=== PATIENT | female | born 1935 | race Caucasian/White ===

== ENCOUNTER → 2017-10-30 | Day surgery (SDC) | payer MEDICARE ==
[~2017-10-30] MED LIST: ACETAMINOPHEN 325 MG TAB ONE; ESTR0.053 TD; GEMF600 PO; LIDOCAINE 1%/EPINEPHrine 1:100,000 SOLN 30 ML VIAL ONE; PROPOFOL 500 MG/50 ML BTL IV ONE
--- NOTE | 2017-10-30 11:32 | TN ---
cc: HYACINTH VALDEZ M.D. DATE OF SURGERY: 10/30/2017 PREOPERATIVE DIAGNOSIS Left temporal headaches, elevated CRP. POSTOPERATIVE DIAGNOSIS Left temporal headaches, elevated CRP. PROCEDURE Left temporal artery biopsy. SURGEON Dr. Hyacinth Valdez. ANESTHESIA Local 1% lidocaine with epinephrine plus TIVA. INDICATIONS This is a very pleasant 82-year-old woman who was sent to me in consultation by Dr. Paco Flannery for headache on the left side of the head. She had a normal ESR but a slightly elevated CRP. Request is made for temporal artery biopsy. INTRAOPERATIVE FINDINGS Really tiny noninflamed temporal artery removed and sent to pathology. ESTIMATED BLOOD LOSS Less than 2 mL. DESCRIPTION OF PROCEDURE IN DETAIL The patient was identified as Conchis Salinas, taken to the operating room and placed in supine position. Following IV sedation by Anesthesia the left temporal area is prepped and draped in the usual sterile fashion with Betadine. A timeout procedure was performed. Following completion of the timeout procedure to everyone's satisfaction within the room, the proposed incision over a palpable temporal arterial pulse was made with a marking pen. It was infiltrated with local anesthetic. The incision was carried out with a scalpel. Hemostasis was controlled with electrocautery. The temporal fascia was opened with the scissors and an underlying tiny arterial branch was identified. Adjacent venous structures were identified and were obviously venous. Temporal artery had proximal, distal and a side branch. These were all cross-clamped with mosquito hemostats and the intervening segment excised and passed off the field for pathologic evaluation. The arterial division sites were ligated with 4-0 silk ties. The wound was irrigated with remaining local anesthetic. No additional arterial structure was evident within the wound. The wound was closed with interrupted inverted 4-0 Monocryl subcuticular sutures. Dressings were applied with Mastisol and half-inch brown Steri-Strips. The patient tolerated the procedure without apparent complication. Sponge, needle and instrument counts were correct at the end of the case. MD LALY Grace/ROS /11:10 AM /11:19 AM
== END | disposition home or self-care (01) ==
LOC: ESDC 08:52
PROVIDERS: ATTEND Surgery Trauma Surgery
DX: R51 Headache (principal); R79.82 Elevated C-reactive protein (CRP)
CPT/HCPCS: 00352; 37609; 88305; J3010; 88304

== ENCOUNTER 2018-03-19 13:00 | Inpatient (IN) | payer MEDICARE ==
[~2018-03-19] VITALS: Ht 162.6 cm; Wt 65.0 kg
[~2018-03-19 13:00] MED LIST changes: -ACETAMINOPHEN 325 MG TAB ONE; -LIDOCAINE 1%/EPINEPHrine 1:100,000 SOLN 30 ML VIAL ONE; -PROPOFOL 500 MG/50 ML BTL IV ONE
[2018-03-19 13:06] VITALS: BP 167/109; PULSE 94; RESP 17; TEMP 97.4; O2SAT 98
[2018-03-19] MEDS ORDERED: MORPHINE SULFATE 2 MG/ML SYRINGE IV PUSH ONE (13:30)
[2018-03-19] MEDS ORDERED: PRED5TAB PO (13:37)
[2018-03-19] MEDS ORDERED: GEMF600 PO (13:37)
[2018-03-19] MEDS ORDERED: ESTR0.5T PO (13:37)
--- NOTE | 2018-03-19 13:44 | PD ---
HPI Chief Complaint: Musculoskeletal Complaint Time Seen by Provider: 13:12 Travel History International Travel<30 days: No Contact w/Intl Traveler<30days: No Traveled to known affect area: No History of Present Illness HPI 82-year-old female that presents to the ED for evaluation of injury to her right shoulder and possible needing surgery. Per patient she had a fall yesterday in [place]. Per patient she was in [facility] and evaluated for a mechanical fall. Per patient she tripped over a curb. She landed on her right shoulder. She suffered a laceration as well as dislocation of her left fifth digit. This was fixed by the physician in the ER which she was seen. She was told that she had a dislocated fracture of her right proximal humerus and that she might require surgery to get it fixed as the physician at the time did not feel comfortable putting her back in place secondary to the fracture. She apparently was not to be sent to [place] but the patient herself decided to come to [facility] where she is from instead of going to [facility]. She currently states that she has 4 out of 10 pain on the right shoulder. She has a sling and swath in place. She states the most of the pain is actually on her left index finger. Per patient the pain in the finger is 10 out of 10. She does have a splint in place. She states that she has multiple abrasions including to her right elbow and hand and feet. Per patient she was given antibiotics and pain medication and did not took anything today because she was concerned she might need surgery today. She denies hitting her head or losing consciousness patient resting blood thinners. She denies having an orthopedic surgeon. No other medical issues. [facility] Past Medical History Arthritis: Yes Hypertension: Yes Tetanus Vaccination: < 5 Years Past Surgical History Appendectomy: Yes Hysterectomy: Yes Tonsillectomy: Yes Social History Alcohol Use: No Tobacco Use: No Substance Use: No Allergies-Medications (Allergen,Severity, Reaction): Coded Allergies: Sulfa (Sulfonamide Antibiotics) (Verified Allergy, Unknown, 03/19/18) codeine (Verified Allergy, Unknown, 03/19/18) erythromycin base (Verified Allergy, Unknown, 03/19/18) iodine (Verified Allergy, Unknown, 03/19/18) iohexol (Unverified Allergy, Unknown, itchy eyes, ears, scratch throat, ) Reported Meds & Prescriptions Reported Meds & Active Scripts Active Reported Prednisone 5 Mg Tab 5 Mg PO DAILY Lopid (Gemfibrozil) 600 Mg Tab 600 Mg PO BIDAC Take 30 minutes prior to breakfast and dinner Estradiol 0.5 Mg Tab 0.5 Mg PO WEEKLY Lopid (Gemfibrozil) 600 Mg Tab 600 Mg PO DAILY Estradiol 0.05 Mg Dis 1 Patch TD Q7D Review of Systems Except as stated in HPI: all other systems reviewed are Neg Physical Exam Narrative GENERAL: SKIN: Warm and dry. Multiple healing abrasions to the left hand, right hand and the right elbow. Patient has a superficial 2 cm laceration that appears to have been sutured with about 6 sutures noted on the left index finger on the ventral aspect of it. HEAD: Atraumatic. Normocephalic. EYES: Pupils equal and round. No scleral icterus. No injection or drainage. ENT: No nasal bleeding or discharge. Mucous membranes pink and moist. Tongue is midline. No uvula deviation. NECK: Trachea midline. No JVD. CARDIOVASCULAR: Regular rate and rhythm. RESPIRATORY: No accessory muscle use. Clear to auscultation. Breath sounds equal bilaterally. GASTROINTESTINAL: Abdomen soft, non-tender, nondistended. Hepatic and splenic margins not palpable. MUSCULOSKELETAL: Extremities without clubbing, cyanosis, or edema. No obvious deformities. Full range of motion of the upper and lower extremities bilaterally with exception of the right shoulder were patient has a sling and swathe has a lot of bruising and swelling noted on the shoulder itself. 2+ pulses bilaterally. Patient cannot move the left index finger secondary to having a splint as well as a lot of pain with it. She does have bruising and swelling noted. Patient does have some bruising noted in her legs but able to move them fully. No obvious cervical, thoracic, lumbar spine tenderness to palpation. NEUROLOGICAL: Awake and alert. No obvious cranial nerve deficits. Motor grossly within normal limits. Five out of 5 muscle strength in the arms and legs. Normal speech. PSYCHIATRIC: Appropriate mood and affect; insight and judgment normal. Data Data Last Documented VS Vital Signs Date Time Temp Pulse Resp B/P (MAP) Pulse Ox O2 Delivery O2 Flow Rate FiO2 03/19/18 13:06 97.4 94 17 167/109 (128) 98 Orders Orders Iv Access Insert/Monitor (03/19/18 13:23) Shoulder, Limited(2vws) (03/19/18 ) Complete Blood Count With Diff (03/19/18 13:29) Comprehensive Metabolic Panel (03/19/18 13:29) Prothrombin Time / Inr (Pt) (03/19/18 13:29) Act Partial Throm Time (Ptt) (03/19/18 13:29) Magnesium (Mg) (03/19/18 13:29) Morphine Inj (Morphine Inj) (03/19/18 13:30) Wound Care (03/19/18 13:29) Ondansetron Inj (Zofran Inj) (03/19/18 14:30) Propofol 200 Mg/20 Ml Inj (Diprivan 200 (03/19/18 14:45) Ct Shoulder W/O Contrast (03/19/18 ) Admit Order (Ed Use Only) (03/19/18 15:19) Admit To Inpatient (03/19/18 ) Code Status (03/19/18 15:20) Vital Signs (Adult) Q4H (03/19/18 15:20) Activity Bed Rest (03/19/18 15:20) Diet Heart Healthy (03/19/18 Dinner) Sodium Chloride 0.9% Flush (Ns Flush) (03/19/18 15:30) Sodium Chloride 0.9% Flush (Ns Flush) (03/19/18 21:00) Acetaminophen (Tylenol) (03/19/18 15:30) Ondansetron Inj (Zofran Inj) (03/19/18 15:30) Temazepam (Restoril) (03/19/18 15:30) Comprehensive Metabolic Panel (03/20/18 06:00) Complete Blood Count With Diff (03/20/18 06:00) Pt Request For Service (03/19/18 15:20) Acetaminophen (Tylenol) (03/19/18 15:30) Acetamin-Hydrocod 325-5 Mg ([place] 5-325 (03/19/18 15:30) Acetamin-Hydrocod 325-7.5 Mg ([place] 7.5 (03/19/18 15:30) Naloxone Inj (Narcan Inj) (03/19/18 15:30) Magnesium Hydroxide Liq (Milk Of Magnesi (03/19/18 15:30) Inpatient Certification (03/19/18 ) Albuterol-Ipratropium Neb (Duoneb Neb) (03/19/18 15:30) Clonidine (Catapres) (03/19/18 15:30) Enalaprilat Inj (Vasotec Inj) (03/19/18 15:30) Labs Laboratory Tests Test 03/19/18 14:00 White Blood Count 14.8 TH/MM3 Red Blood Count 4.25 MIL/MM3 Hemoglobin 12.7 GM/DL Hematocrit 38.0 % Mean Corpuscular Volume 89.3 FL Mean Corpuscular Hemoglobin 30.0 PG Mean Corpuscular Hemoglobin Concent 33.6 % Red Cell Distribution Width 12.6 % Platelet Count 296 TH/MM3 Mean Platelet Volume 8.0 FL Neutrophils (%) (Auto) 81.8 % Lymphocytes (%) (Auto) 8.3 % Monocytes (%) (Auto) 9.0 % Eosinophils (%) (Auto) 0.2 % Basophils (%) (Auto) 0.7 % Neutrophils # (Auto) 12.1 TH/MM3 Lymphocytes # (Auto) 1.2 TH/MM3 Monocytes # (Auto) 1.3 TH/MM3 Eosinophils # (Auto) 0.0 TH/MM3 Basophils # (Auto) 0.1 TH/MM3 CBC Comment DIFF FINAL Differential Comment Prothrombin Time 10.0 SEC Prothromb Time International Ratio 1.0 RATIO Activated Partial Thromboplast Time 24.8 SEC Blood Urea Nitrogen 16 MG/DL Creatinine 0.85 MG/DL Random Glucose 115 MG/DL Total Protein 7.0 GM/DL Albumin 3.8 GM/DL Calcium Level 9.3 MG/DL Magnesium Level 2.2 MG/DL Alkaline Phosphatase 70 U/L Aspartate Amino Transf (AST/SGOT) 23 U/L Alanine Aminotransferase (ALT/SGPT) 22 U/L Total Bilirubin 0.4 MG/DL Sodium Level 137 MEQ/L Potassium Level 4.2 MEQ/L Chloride Level 102 MEQ/L Carbon Dioxide Level 26.0 MEQ/L Anion Gap 9 MEQ/L Estimat Glomerular Filtration Rate 64 ML/MIN MDM Medical Decision Making Medical Screen Exam Complete: Yes Emergency Medical Condition: Yes Medical Record Reviewed: Yes Interpretation(s) CBC & BMP Diagram 03/19/18 14:00 Total Protein 7.0, Albumin 3.8, Calcium Level 9.3, Magnesium Level 2.2, Alkaline Phosphatase 70, Aspartate Amino Transf (AST/SGOT) 23, Alanine Aminotransferase (ALT/SGPT) 22, Total Bilirubin 0.4 Last Impressions Shoulder X-Ray 03/19/18 0000 Signed Impressions: Service Date/Time: Monday, March 19, 2018 13:39 - CONCLUSION: Fracture dislocation humeral head as above. Louis Lowe MD FACR Differential Diagnosis Fracture versus fracture dislocation versus laceration versus wound care versus normal exam Narrative Course 82-year-old female that presents to the ED for evaluation of right shoulder pain and possible need for surgery. Patient was properly examined and was found to have signs and symptoms consistent with what appears to be fracture dislocation. Patient came here with imaging CDs as well as reports from the hospital where she was at. I did review the CD imaging and patient does appear to have a fracture dislocation of the right humeral head. Patient opted to come here to get evaluated instead of going to [place] secondary to being from here. At this time a recommend x-ray to see if the fracture still dislocated. Patient was given IV pain medications. Meds were ordered. Labs and imaging show what appears to be fracture dislocation of the right shoulder. Case was discussed with my attending who recommends we speak with ortho. I spoke with jerson and MAGAN who works with Dr. Ornelas and recommended that we try to do the reduction. Before the reduction was done my attending got a call back from Dr. Ornelas's PA who wanted us to admit the patient and do a CT and n.p.o. after midnight for surgery tomorrow. This was relayed to the patient who agree with plan. My attending evaluated the patient herself and agrees with plan. Patient will be admitted to Dr. Zuniga who agreed to admission. Diagnosis Primary Impression: Fracture of humeral head, right, closed Qualified Codes: S42.291A - Other displaced fracture of upper end of right humerus, initial encounter for closed fracture Additional Impressions: Dislocation, shoulder closed Qualified Codes: S43.004A - Unspecified dislocation of right shoulder joint, initial encounter Multiple abrasions Finger dislocation Qualified Codes: S63.259A - Unspecified dislocation of unspecified finger, initial encounter Admitting Information Admitting Physician Requests: Admit Bertram Lee March 19, 2018 13:44
--- NOTE | 2018-03-19 13:52 | RADRPT ---
EXAM DATE/TIME: 03/19/2018 13:39 [facility] COMPARISON: No previous studies available for comparison. INDICATIONS : Right shoulder pain after fall lastnight. MEDICAL HISTORY : None. SURGICAL HISTORY : None. ENCOUNTER: Initial ACUITY: 1 day PAIN SCORE: 6/10 LOCATION: Right shoulder FINDINGS: Anterior inferior dislocation with 2 part fracture of the humeral head with greater tuberosity free f ragment. The glenoid acromion and clavicle intact. CONCLUSION: Fracture dislocation humeral head as above. Louis Lowe MD FACR on March 19, 2018 at 13:49 Board Certified Radiologist. This report was verified electronically.
[2018-03-19] MEDS: GEMFIBROZIL 600 MG TAB PO SCH ×2 (14:00→23:52)
[2018-03-19 14:11] LABS: AUTOMATED NEUTROPHIL # 12.1 TH/MM3 (1.8-7.7); BASOPHIL # 0.1 TH/MM3 (0-0.2); BASOPHIL % 0.7 % (0.0-2.0); EOSINOPHIL % 0.2 % (0.0-4.0); HEMOGLOBIN 12.7 GM/DL (11.6-15.3); LYMPH % 8.3 % (9.0-44.0); LYMPHOCYTE # 1.2 TH/MM3 (1.0-4.8); MEAN CELL VOLUME 89.3 FL (80.0-100.0); MEAN CORPUSCULAR HGB CONC 33.6 % (32.0-36.0); MONOCYTE # 1.3 TH/MM3 (0-0.9); NEUT % 81.8 % (16.0-70.0); PLATELET COUNT 296 TH/MM3 (150-450); RED BLOOD COUNT 4.25 MIL/MM3 (4.00-5.30); RED CELL DISTRIBUTION WIDTH 12.6 % (11.6-17.2); WHITE BLOOD COUNT 14.8 TH/MM3 (4.0-11.0)
[2018-03-19 14:23] LABS: ALBUMIN 3.8 GM/DL (3.4-5.0); ALT (GPT) 22 U/L (10-53); AST (GOT) 23 U/L (15-37); BLOOD UREA NITROGEN 16 MG/DL (7-18); CALCIUM 9.3 MG/DL (8.5-10.1); CHLORIDE 102 MEQ/L (98-107); CREATININE 0.85 MG/DL (0.50-1.00); GLOMERULAR FILTRATION RATE 64 ML/MIN (>89); GLUCOSE,RANDOM 115 MG/DL (74-106); MAGNESIUM 2.2 MG/DL (1.5-2.5); SODIUM (NA) 137 MEQ/L (136-145)
[2018-03-19 14:25] LABS: ALKALINE PHOSPHATASE 70 U/L (45-117); TOTAL BILIRUBIN ADULT 0.4 MG/DL (0.2-1.0)
[2018-03-19] MEDS ORDERED: ONDANSETRON HCL 4 MG/2 ML VIAL IV PUSH ONE (14:30)
[2018-03-19] MEDS ORDERED: PROPOFOL 200 MG/20 ML AMP IV ONE (14:45)
[2018-03-19] MEDS ORDERED: RESP: ALBUTEROL 2.5 MG/IPRATROPIUM 0.5 MG NEB (PRN) NEB (15:30)
[2018-03-19] MEDS ORDERED: NALOXONE HCL 0.4 MG/ML AMP IV PUSH PRN (15:30)
[2018-03-19] MEDS ORDERED: ONDANSETRON HCL 4 MG/2 ML VIAL IVP PRN (15:30)
[2018-03-19] MEDS ORDERED: SODIUM CHLORIDE 0.9% FLUSH 10 ML FLUSH IV FLUSH PRN (15:30)
[2018-03-19] MEDS ORDERED: ACETAMINOPHEN 325 MG TAB PO PRN ×2 (15:30)
[2018-03-19] MEDS ORDERED: MAGNESIUM HYDROXIDE SUSP 30 ML CUP PO PRN (15:30)
[2018-03-19] MEDS ORDERED: ACETAMINOPHEN/HYDROcodone 325 MG/7.5 MG TAB PO PRN (15:30)
--- NOTE | 2018-03-19 15:43 | HHI.HP ---
HPI Service [facility] Primary Care Physician Dawson Troy MD Admission Diagnosis right humeral head fracture with dislocation, fall Diagnoses: (1) Fracture of humeral head, right, closed (2) Leucocytosis (3) Hypertension (4) Finger dislocation Chief Complaint: Right upper extremity pain Travel History International Travel<30 Days: No Contact w/Intl Traveler <30 Da: No Traveled to Known Affected Are: No History of Present Illness 82-year-old female for medical history of hypertension, osteoarthritis who presented to the ED via private vehicle for evaluation of right upper extremity/ shoulder pain as well as left fifth finger pain status post mechanical fall, which have been last night around 8 PM in [place]. Patient states, she tripped over, in the parking lot and landed on the right shoulder, however in the process injuring her left fifth finger. She denied any head trauma or loss of consciousness. She suffered multiple laceration to bilateral lower extremities. Immediately reported over 10 in intensity severe pain. Patient was initially taken to a local emergency department however decided to drive herself in [place] for evaluation by orthopedic surgery. Currently she denies any chest pain, shortness of breath. She has no GI bleed. 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 Hypertension Past Surgical History Appendectomy: Yes Hysterectomy: Yes Tonsillectomy: Yes Reported Medications Prednisone 5 Mg Tab 5 Mg PO DAILY Lopid (Gemfibrozil) 600 Mg Tab 600 Mg PO BIDAC Take 30 minutes prior to breakfast and dinner Estradiol 0.5 Mg Tab 0.5 Mg PO WEEKLY Lopid (Gemfibrozil) 600 Mg Tab 600 Mg PO DAILY Estradiol 0.05 Mg Dis 1 Patch TD Q7D Allergies: Coded Allergies: Sulfa (Sulfonamide Antibiotics) (Verified Allergy, Unknown, 03/19/18) erythromycin base (Verified Allergy, Unknown, 03/19/18) iodine (Verified Allergy, Unknown, 03/19/18) iohexol (Unverified Allergy, Unknown, itchy eyes, ears, scratch throat, ) codeine (Verified Adverse Reaction, Mild, Nausea/Vomiting, 03/19/18) Family History Due to patient's advanced age, family history not relevant for this case Social History Alcohol Use: No Tobacco Use: No Substance Use: No Physical Exam Vital Signs Vital Signs Date Time Temp Pulse Resp B/P (MAP) Pulse Ox O2 Delivery O2 Flow Rate FiO2 03/19/18 13:06 97.4 94 17 167/109 (128) 98 Physical Exam GENERAL: This is a well-nourished, well-developed patient, in no apparent distress. SKIN: + ecchymoses BLE. Cool and dry. HEAD: Atraumatic. Normocephalic. No temporal or scalp tenderness. EYES: Pupils equal round and reactive. Extraocular motions intact. No scleral icterus. No injection or drainage. ENT: Nose without bleeding, purulent drainage or septal hematoma. Throat without erythema, tonsillar hypertrophy or exudate. Uvula midline. Airway patent. NECK: Trachea midline. No JVD or lymphadenopathy. Supple, nontender, no meningeal signs. CARDIOVASCULAR: Regular rate and rhythm without murmurs, gallops, or rubs. RESPIRATORY: Clear to auscultation. Breath sounds equal bilaterally. No wheezes , rales, or rhonchi. GASTROINTESTINAL: Abdomen soft, non-tender, nondistended. No hepato-splenomegaly , or palpable masses. No guarding. MUSCULOSKELETAL: Extremities without clubbing, cyanosis, or edema. No joint tenderness, effusion, or edema noted. No calf tenderness. Negative Homans sign bilaterally.RUE in sling; left fifth finger in splint. NEUROLOGICAL: Awake and alert. Cranial nerves II through XII intact. Motor and sensory grossly within normal limits. Five out of 5 muscle strength in all muscle groups. Normal speech. Laboratory Laboratory Tests Test 03/19/18 14:00 White Blood Count 14.8 Red Blood Count 4.25 Hemoglobin 12.7 Hematocrit 38.0 Mean Corpuscular Volume 89.3 Mean Corpuscular Hemoglobin 30.0 Mean Corpuscular Hemoglobin Concent 33.6 Red Cell Distribution Width 12.6 Platelet Count 296 Mean Platelet Volume 8.0 Neutrophils (%) (Auto) 81.8 Lymphocytes (%) (Auto) 8.3 Monocytes (%) (Auto) 9.0 Eosinophils (%) (Auto) 0.2 Basophils (%) (Auto) 0.7 Neutrophils # (Auto) 12.1 Lymphocytes # (Auto) 1.2 Monocytes # (Auto) 1.3 Eosinophils # (Auto) 0.0 Basophils # (Auto) 0.1 CBC Comment DIFF FINAL Differential Comment Prothrombin Time 10.0 Prothromb Time International Ratio 1.0 Activated Partial Thromboplast Time 24.8 Blood Urea Nitrogen 16 Creatinine 0.85 Random Glucose 115 Total Protein 7.0 Albumin 3.8 Calcium Level 9.3 Magnesium Level 2.2 Alkaline Phosphatase 70 Aspartate Amino Transf (AST/SGOT) 23 Alanine Aminotransferase (ALT/SGPT) 22 Total Bilirubin 0.4 Sodium Level 137 Potassium Level 4.2 Chloride Level 102 Carbon Dioxide Level 26.0 Anion Gap 9 Estimat Glomerular Filtration Rate 64 Result Diagram: 03/19/18 1400 03/19/18 1400 Septic Shock Reassessment Septic shock perfusion: reassessment completed Caprini VTE Risk Assessment Caprini VTE Risk Assessment: Mod/High Risk (score >= 2) Caprini Risk Assessment Model Point Value = 1 Point Value = 2 Point Value = 3 Point Value = 5 Age 41-60 Minor surgery BMI > 25 kg/m2 Swollen legs Varicose veins or History of unexplained or recurrent spontaneous Oral contraceptives or hormone replacement Sepsis (< 1 month) Serious lung disease, including pneumonia (< 1 month) Abnormal pulmonary function Acute myocardial infarction Congestive heart failure (< 1 month) History of inflammatory bowel disease Medical patient at bed rest Age 61-74 Arthroscopic surgery Major open surgery (> 45 min) Laparoscopic surgery (> 45 min) Malignancy Confined to bed (> 72 hours) Immobilizing plaster cast Central venous access Age >= 75 History of VTE Family history of VTE Factor V Leiden Prothrombin [id number] Lupus anticoagulant Anticardiolipin antibodies Elevated serum homocysteine Heparin-induced thrombocytopenia Other congenital or acquired thrombophilia Stroke (< 1 month) Elective arthroplasty Hip, pelvis, or leg fracture Acute spinal cord injury (< 1 month) Prophylaxis Regimen Total Risk Factor Score Risk Level Prophylaxis Regimen 0-1 Low Early ambulation 2 Moderate Order ONE of the following: *Sequential Compression Device (SCD) *Heparin 5000 units SQ BID 3-4 Higher Order ONE of the following medications: *Heparin 5000 units SQ TID *Enoxaparin/Lovenox 40 mg SQ daily (WT < 150 kg, CrCl > 30 mL/min) *Enoxaparin/Lovenox 30 mg SQ daily (WT < 150 kg, CrCl > 10-29 mL/min) *Enoxaparin/Lovenox 30 mg SQ BID (WT < 150 kg, CrCl > 30 mL/min) AND/OR *Sequential Compression Device (SCD) 5 or more Highest Order ONE of the following medications: *Heparin 5000 units SQ TID (Preferred with Epidurals) *Enoxaparin/Lovenox 40 mg SQ daily (WT < 150 kg, CrCl > 30 mL/min) *Enoxaparin/Lovenox 30 mg SQ daily (WT < 150 kg, CrCl > 10-29 mL/min) *Enoxaparin/Lovenox 30 mg SQ BID (WT < 150 kg, CrCl > 30 mL/min) AND *Sequential Compression Device (SCD) Assessment and Plan Problem List: (1) Fracture of humeral head, right, closed ICD Code: S42.291A - Other displaced fracture of upper end of right humerus, initial encounter for closed fracture Status: Acute (2) Finger dislocation ICD Code: S63.259A - Unspecified dislocation of unspecified finger, initial encounter Status: Acute Assessment and Plan 82-year-old female with Fracture of humeral heads, right, closed Status post mechanical fall March 17, 2018 Outside radiographic studies noted and reviewed Check CT right upper extremity Orthopedic surgery consulted for repair in a.m. Analgesic/pain medication as needed N.p.o. after midnight Dislocation of left fifth digits Consul Hand surgery as needed History of hypertension Labile BP likely secondary to poorly controlled blood pressure versus inadequate pain control Resume outpatient medication Clonidine as needed Patient with history of giant cell arthritis Currently on steroid, resume Leukocytosis Likely secondary to steroid versus stress reactive Monitor DVT prophylaxis: Bilateral SCDs Code Status Full code Discussed Condition With Patient, granddaughter, ED PA Physician Certification Order for Inpatient Services The services are ordered in accordance with Medicare regulations or non- Medicare payer requirements, as applicable. In the case of services not specified as inpatient-only, they are appropriately provided as inpatient services in accordance with the 2-midnight benchmark. days is the estimated time the patient will need to remain in the hospital, assuming treatment plan goals are met and no additional complications. Problem Qualifiers (1) Fracture of humeral head, right, closed: Qualified Codes: S42.291A - Other displaced fracture of upper end of right humerus, initial encounter for closed fracture (2) Finger dislocation: Qualified Codes: S63.259A - Unspecified dislocation of unspecified finger, initial encounter Dante Zuniga MD March 19, 2018 15:43
--- NOTE | 2018-03-19 16:12 | RADRPT ---
EXAM DATE/TIME: 03/19/2018 15:50 This report includes an Addendum and supersedes previous reports for this exam. [facility] COMPARISON: No previous studies available for comparison. INDICATIONS : Right shoulder fracture post fall. RADIATION DOSE: 21.70 CTDIvol (mGy) MEDICAL HISTORY : Hypertension. SURGICAL HISTORY : None. ENCOUNTER: Initial ACUITY: 1 day PAIN SCALE: 10/10 LOCATION: Right shoulder TECHNIQUE: Volumetric scanning of the shoulder was performed. Using automated exposure control and adjustment o f the mA and/or kV according to patient size, radiation dose was kept as low as reasonably achievable to obtain optimal diagnostic quality images. DICOM format image data is available electronically f or review and comparison. FINDINGS: Again seen is the fracture dislocation of the humeral head. The large fragment of the humeral head i s trapped below the glenoid. The liver is small corner fracture inferior glenoid. The greater tuberosity is 83 fragment. The acromium and scapula are intact. 3-D reconstructions are pending. CONCLUSION: Anterior fracture dislocation of the right humerus. Louis Lowe MD FACR on March 19, 2018 at 16:08 Board Certified Radiologist. This report was verified electronically. ADDENDUM: 3-D reconstructions confirm comminuted fracture with anterior dislocation humeral head. Louis Lowe MD FACR on March 19, 2018 at 16:25 Board Certified Radiologist. This report was verified electronically.
[2018-03-19 16:13] VITALS: BP 184/78; PULSE 81; RESP 18; O2SAT 98
[2018-03-19 17:10] VITALS: BP 165/78
[2018-03-19] MEDS: cloNIDine HCL 0.1 MG TAB PO PRN (17:12)
[2018-03-19 20:00] VITALS: BP 167/74; PULSE 89; RESP 19; TEMP 97.9; O2SAT 98
--- NOTE | 2018-03-19 20:10 | RADRPT ---
EXAM DATE/TIME: 03/19/2018 19:46 [facility] COMPARISON: No previous studies available for comparison. INDICATIONS : Pain. MEDICAL HISTORY : None. SURGICAL HISTORY : None. ENCOUNTER: Initial ACUITY: 1 day PAIN SCORE: 4/10 LOCATION: Left hand, fifth digit. FINDINGS: There is soft tissue swelling of the fifth finger and a small avulsion fracture is noted adjacent to the proximal interphalangeal joint. True lateral view not available. CONCLUSION: 1. Small avulsion fracture near proximal interphalangeal joint of fifth finger. Overlying soft tissue swelling. No dislocation. Osteoarthritis left hand. Santos Herman MD on March 19, 2018 at 20:07 Board Certified Radiologist. This report was verified electronically.
[2018-03-19] MEDS: SODIUM CHLORIDE 0.9% FLUSH 10 ML FLUSH IV FLUSH SCH (21:00)
[2018-03-19] MEDS ORDERED: TEMAZEPAM 15 MG CAP PO PRN (21:00)
--- NOTE | 2018-03-19 21:36 | RADRPT ---
EXAM DATE/TIME: 03/19/2018 20:23 [facility] COMPARISON: No previous studies available for comparison. INDICATIONS : Pain. Follow up post dislocation. MEDICAL HISTORY : None. SURGICAL HISTORY : None. ENCOUNTER: Initial ACUITY: 2 days PAIN SCORE: 2/10 LOCATION: Right hand, proximal first digit. FINDINGS: Examination of the first digit of the right hand demonstrates no evidence of fracture or dislocation. No radiopaque foreign bodies are seen. The soft tissues are intact. CONCLUSION: 1. Normal alignment. No acute fracture identified. Santos Herman MD on March 19, 2018 at 21:31 Board Certified Radiologist. This report was verified electronically.
[2018-03-19] MEDS ORDERED: LACTATED RINGER'S 1000 ML IV PRN (21:45)
[2018-03-19] MEDS ORDERED: METOPROLOL TARTRATE 25 MG TAB PO PRN (21:45)
[2018-03-19] MEDS ORDERED: SODIUM CHLORID 0.9% 500 ML IV PRN (21:45)
[2018-03-19] MEDS ORDERED: hydrALAZINE HCL 25 MG TAB PO PRN (22:15)
[2018-03-20] VITALS (9 sets, daily range): BP systolic 140–184; BP diastolic 64–88; PULSE 82–98; RESP 17–18; TEMP 97.2–98.2; O2SAT 92–98
--- NOTE | 2018-03-20 00:35 | MB ---
cc: Liliane Louise MD DATE: 03/19/2018 REASON FOR COMPLAINT: Status post left small finger PIP dislocation and reduction, and right thumb sprain. HISTORY OF PRESENT ILLNESS: Conchis Salinas is a pleasant 82-year-old female who lives in [place], who was in [place], [place] yesterday evening for a when she tripped and fell in a parking lot. She injured her right shoulder, right thumb and left small finger. The patient states she was seen at a hospital in [place]. She states she had an open dislocation of the left small finger PIP joint. I do not have the records, but per the patient, the wound was irrigated and sutured and reduced. The patient states she also had a dislocation of the right thumb, which was reduced without an open wound. The ER physician recommended surgery for the right shoulder, and the patient returned home for evaluation at [place] today. She denies prior significant injuries to bilateral upper extremities. She was seen by Dr. Urrutia in the past for an infection over the left middle finger. She has multiple abrasions over the upper and lower extremities. PAST SURGICAL HISTORY: Appendectomy, hysterectomy, tonsillectomy. PAST MEDICAL HISTORY: Hypertension. MEDICATIONS: 1. Prednisone. 2. Gemfibrozil. 3. Estradiol. ALLERGIES: SULFA, CODEINE, ERYTHROMYCIN, IODINE. SOCIAL HISTORY: The patient is retired. Denies tobacco, alcohol or drug use. She lives in [facility] with her . PHYSICAL EXAMINATION: The patient is alert and oriented. She presents in a sling on the right upper extremity. There is a dressing on the right thumb which was removed. There are no lacerations over the right thumb. The patient is able to flex and extend the thumb, and the thumb appears stable. Exam of the left hand shows an abrasion over the left palm. Sutures in place over the volar aspect of the left small finger. The patient is able to fire FDS and FDP. Sensation intact in the radial and ulnar side. Less than 2 second capillary refill. XRAYS: At this time, I do not have records from the outside hospital or their x-rays. Today xrays of the left small finger show an avulsion of the PIP joint with a reduced joint. No evidence of fracture or dislocation of the right thumb. ASSESSMENT AND PLAN: An 82-year-old female with apparent prior dislocation of the left small finger PIP joint, which was open and reduced at the outside hospital. Again, I do not have their x-rays at this time. The patient also states a reduction over the right thumb, but I do not have evidence of this today. Repeat x-rays show reduction of both joints. The patient was placed into an ulnar gutter splint on the left hand due to the right upper extremity surgery tomorrow. After this, she should be placed into a dorsal blocking splint by therapy to work on aggressive flexion of the finger. I will see her when she is discharged in 1 week in the office. Dr. Ornelas may manage the right upper extremity or I can continue to follow the thumb and hopefully obtain the x-rays from the outside hospital. At this time, no splint was placed on the right thumb. Nurses should change the abrasion dressings daily. MD HOSSEIN Xiao/DASIA , 11:31 PM , 12:34 AM [email or web address]
[2018-03-20] MEDS: ENALAPRILAT 2.5 MG/2 ML VIAL IV PUSH PRN (05:45)
[2018-03-20] MEDS ORDERED: MORPHINE SULFATE 4 MG/ML INJ IV ONE (06:00)
[2018-03-20 07:04] LABS: AUTOMATED NEUTROPHIL # 9.7 TH/MM3 (1.8-7.7); BASOPHIL # 0.1 TH/MM3 (0-0.2); BASOPHIL % 0.7 % (0.0-2.0); EOSINOPHIL # 0.1 TH/MM3 (0-0.4); EOSINOPHIL % 1.2 % (0.0-4.0); HEMATOCRIT 34.9 % (35.0-46.0); HEMOGLOBIN 11.7 GM/DL (11.6-15.3); LYMPH % 9.2 % (9.0-44.0); LYMPHOCYTE # 1.1 TH/MM3 (1.0-4.8); MEAN CELL VOLUME 89.5 FL (80.0-100.0); MEAN CORPUSCULAR HEMOGLOBIN 30.1 PG (27.0-34.0); MEAN CORPUSCULAR HGB CONC 33.6 % (32.0-36.0); MONO % 10.1 % (0.0-8.0); MONOCYTE # 1.2 TH/MM3 (0-0.9); NEUT % 78.8 % (16.0-70.0); PLATELET COUNT 261 TH/MM3 (150-450); RED CELL DISTRIBUTION WIDTH 12.5 % (11.6-17.2); WHITE BLOOD COUNT 12.3 TH/MM3 (4.0-11.0)
--- NOTE | 2018-03-20 07:15 | PD.ORT.PN ---
Subjective Subjective Remarks s/p fall in [place] approx 3 days ago left hand pain and right shoulder pain hand managing left hand Objective Vitals Vital Signs Date Time Temp Pulse Resp B/P (MAP) Pulse Ox O2 Delivery O2 Flow Rate FiO2 03/20/18 04:00 98.2 90 18 168/74 (105) 96 03/20/18 00:00 98.0 95 18 147/88 (107) 95 03/19/18 20:00 97.9 89 19 167/74 (105) 98 03/19/18 17:10 165/78 (107) 03/19/18 16:13 81 18 184/78 (113) 98 03/19/18 13:06 97.4 94 17 167/109 (128) 98 I/O 03/19/18 03/19/18 03/19/18 03/20/18 03/20/18 03/20/18 07:00 15:00 23:00 07:00 15:00 23:00 Intake Total 575 ml Balance 575 ml Intake Oral 575 ml # Voids 2 Result Diagram: 03/20/18 0651 03/19/18 1400 Other Results Laboratory Tests Test 03/19/18 14:00 Prothromb Time International Ratio 1.0 RATIO Prothrombin Time 10.0 SEC (9.8-11.6) Objective Remarks RUE: +sling/swathe. noticeable bruising of right arm. nvi distally Assessment & Plan Assessment and Plan 1) Right Proximal Humerus Fx with dislocation -npo -surgery today with Ornelas -sign consents Sameer Cannon/Radiology Practitioner Assistant PA March 20, 2018 07:15
[2018-03-20] MEDS ORDERED: CALCTAB19 PO (07:16)
[2018-03-20] MEDS ORDERED: VITA2000 PO (07:16)
[2018-03-20] MEDS ORDERED: VITA500012 PO (07:16)
[2018-03-20] MEDS ORDERED: HYDR-3583 PO (07:16)
[2018-03-20] MEDS ORDERED: ceFAZolin 2 GM PREMIX 50 ML ONE (07:29)
[2018-03-20] MEDS ORDERED: GENTAMICIN SULFATE 80 MG/2 ML VIAL ONE (07:29)
[2018-03-20] MEDS ORDERED: VANCOMYCIN HCL 1000 MG VIAL ONE (07:29)
[2018-03-20 07:36] LABS: ALBUMIN 3.2 GM/DL (3.4-5.0); ALT (GPT) 17 U/L (10-53); AST (GOT) 22 U/L (15-37); BICARBONATE 27.7 MEQ/L (21.0-32.0); BLOOD UREA NITROGEN 11 MG/DL (7-18); CALCIUM 8.8 MG/DL (8.5-10.1); CHLORIDE 104 MEQ/L (98-107); CREATININE 0.74 MG/DL (0.50-1.00); GLOMERULAR FILTRATION RATE 75 ML/MIN (>89); GLUCOSE,RANDOM 118 MG/DL (74-106); SODIUM (NA) 139 MEQ/L (136-145)
[2018-03-20 07:38] LABS: ALKALINE PHOSPHATASE 60 U/L (45-117); TOTAL BILIRUBIN ADULT 0.5 MG/DL (0.2-1.0); TOTAL PROTEIN 6.3 GM/DL (6.4-8.2)
[2018-03-20] MEDS ORDERED: HYDROCORTISONE SOD SUCCINATE 100 MG VIAL ONE (08:01)
[2018-03-20] MEDS: predniSONE 5 MG TAB PO SCH (08:40)
[2018-03-20] MEDS: SODIUM CHLORIDE 0.9% FLUSH 10 ML FLUSH IV FLUSH SCH ×2 (08:41→21:28)
--- NOTE | 2018-03-20 08:54 | MB ---
cc: Benton Ornelas MD DATE: 03/20/2018 REASON FOR CONSULTATION: Right proximal humerus fracture dislocation CONSULTING PHYSICIAN: Dr. Dante Zuniga. HISTORY OF PRESENT ILLNESS: Conchis is an 82-year-old female who has a history of hypertension and osteoarthritis. She was in [place] when she had a mechanical fall. She tripped in a parking lot and landed on her right arm. She had immediate right arm and hand pain. She was seen and evaluated in an emergency room in [place]. She reportedly had a finger dislocation as well as a right proximal humerus fracture dislocation. The patient was placed into a sling. She returned home via private vehicle. She presented to [facility] for definitive treatment of her hand and her right shoulder. Hand surgery has been consulted for treatment of her fingers. X-rays reveal a fracture-dislocation of the right proximal humerus. The shoulder is still dislocated. The patient is currently awake and alert on the orthopedic floor. She primarily complains of shoulder pain. The pain is worse with movement and is improved with rest. PAST MEDICAL HISTORY: ILLNESSES: Hypertension. PAST SURGICAL HISTORY: Appendectomy, hysterectomy, tonsillectomy. MEDICATIONS: Estradiol and prednisone. ALLERGIES: SULFA, CODEINE, ERYTHROMYCIN, IODINE. FAMILY HISTORY: Noncontributory. SOCIAL HISTORY: The patient denies alcohol, tobacco or drug use. REVIEW OF SYSTEMS: The patient denies headache, visual changes, neck pain, chest pain, shortness of breath, abdominal pain, nausea, vomiting, recent weight loss, fever, chills, numbness or tingling of the extremities. She complains of right shoulder pain. She also has some left hand pain. The pain is worse with movement. PHYSICAL EXAMINATION: GENERAL: The patient is a pleasant 82-year-old female. She is awake and alert. She appears well developed and well nourished. She is in no acute distress. VITAL SIGNS: Temperature 97.8, pulse 86, respirations 18, blood pressure 147/65, O2 saturation 98% on room air. HEENT: Head: The patient is normocephalic. Pupils are equal. NECK: Soft, nontender. The trachea is in the midline. ABDOMEN: Soft, nontender, nondistended. EXTREMITIES: Examination of the right arm reveals mild swelling and bruising of the right shoulder. She has pain with any shoulder motion. She has no pain with elbow motion. She has intact sensation in all fingers. She has good capillary refill in all fingers. Examination of the left arm reveals no pain with shoulder, elbow or wrist motion. She has intact sensation in all fingers. Radial pulse is palpable. Skin is intact. Examination of bilateral lower extremities reveals no pain with hip, knee or ankle motion. Skin is intact. Sensation is intact to both feet. X-RAYS: X-rays of the right shoulder were reviewed. X-rays reveal a fracture-dislocation of the right proximal humerus. LABORATORY DATA: White blood cell count is 12.3, hematocrit is 34.9, platelet count is 261. INR is 1.0. BUN is 11 and creatinine 0.74. IMPRESSION: 1. Hypertension. 2. Right shoulder fracture dislocation. 3. Left fifth finger proximal interphalangeal joint dislocation. PLAN: Treatment options were discussed with the patient and her family. At this point, I would recommend surgery for her right shoulder. I would recommend attempted open reduction, internal fixation of fracture. If the fracture is in too many pieces and not stable, then she may need a right shoulder hemiarthroplasty. The risks of surgery include bleeding, infection, injuries to arteries, nerves or blood vessels, nonunion, malunion, need for shoulder replacement, loss of motion, weakness or numbness of the arm as well as medical complications including blood clot, stroke, heart attack and . All questions were answered. I will plan on surgery today. All questions were answered. A mid-level provider in my office, nurse practitioner or PA, may see this patient on a follow-up basis and continue to implement the objective of this plan including: Starting or adjusting medications, injections of muscle, tendon, bursa or joints, cast application, orthotic or brace application, physical therapy, further radiographic studies including x-ray, MRI, CT, ultrasounds or bone scan, vascular studies, neurologic studies, or other specialist consultations, and proceeding with surgical management as appropriate. MD USHA Espino/GRAY , 08:29 AM , 08:53 AM
[2018-03-20] MEDS ORDERED: ACETAMINOPHEN 1000 MG/100 ML 100 ML IV ONE (09:02)
--- NOTE | 2018-03-20 09:42 | PD.OP ---
cc: Benton Mcgrath MD Operative Report Date of Surgery: March 20, 2018 Preoperative Diagnosis: Right proximal humerus fracture, right shoulder dislocation Postoperative Diagnosis: Procedure: Open treatment right shoulder dislocation, open reduction to fixation right proximal humerus Anesthesia: General Surgeon: Benton Mcgrath Beaming Inspector(s): MAGAN Treviño PA-C The surgical procedure was assisted by my physician branch assistant. My P.A. presence was necessary throughout this case for the manipulation and positioning of the surgical extremity. My P.A. was assisting me throughout the duration of this procedure. The skill set of a physician branch assistant was medically necessary to complete this procedure. During the surgical case the surgical consultant was working at the back table and the physician branch assistant was directly assisting me. Operation and Findings: Implants used: Synthes Plan of activity: Sling and swath at all times for 2 weeks, start pendulums in 2 weeks Details of procedure: Patient was seen and evaluated preoperatively. Patient was found to have a displaced right proximal humerus fracture with shoulder dislocation. The risks and benefits of surgical and nonsurgical options were discussed in detail and informed consent was obtained for surgery. Patient was brought to the operating room and placed on or table. IV sedation and GETA were administered by anesthesiologist. Antibiotics were given prior to incision. Operative arm and shoulder were prepped with alcohol followed by Hibiclens and draped usual sterile fashion. Timeout procedure was performed. Procedure began with a 5 inch incision over the anterior shoulder. Cephalic vein was identified. A deltopectoral approach was utilized. The fracture was now visualized. Soft tissue was retracted. At this point attention was turned towards reduction of the dislocation. The fracture was relatively well aligned. Multiple K wires were placed to pin the humeral shaft to the humeral head. The proximal humerus was now gently manipulated. The glenohumeral joint was reduced. At this point attention was turned to open reduction fixation of the fracture. A #5 FiberWire suture was placed into the rotator rotator cuff/ greater tuberosity and the subscapularis tendon. Attention was now turned to reduction. Gentle traction was applied. The humeral shaft was reduced to the humeral head. Fracture was manipulated to achieve excellent reduction. Multiplanar fluoroscopy confirmed well aligned fracture. Multiple K wires were used to hold provisional fixation. A Synthes proximal humerus plate was selected. Plate was provisionally held in place K wires. 3.5 cortical screws were used to compress plate to bone. Fluoroscopy confirmed appropriate plate placement and fracture reduction. Multiple locking screws were now placed in the humeral head. Screws were predrilled and premeasured for appropriate length. Care was taken not to penetrate the articular surface. Additional screws were placed in the humeral shaft. The FiberWire suture was passed through the holes of the plate and sutured to the plate for additional stability. Final fluoroscopy revealed well aligned fracture with well-placed hardware. Wound was thoroughly irrigated. Fascia was closed with #1 Vicryl, subcutaneous tissues closed with 3-0 Vicryl, and skin was closed with edyta. Sterile dressings were applied. Patient was placed into a sling. Patient was awakened and transferred to recovery in stable condition. Needle and sponge counts were correct. Benton Mcgrath MD March 20, 2018 09:42
[2018-03-20] MEDS ORDERED: MORPHINE SULFATE 4 MG/ML INJ IV PUSH PRN (09:45)
[2018-03-20] MEDS ORDERED: ERGOCALCIFEROL (VIT D2) 50,000 UNIT CAP PO SCH (09:45)
[2018-03-20] MEDS ORDERED: diphenhydrAMINE HCL 25 MG CAP PO PRN (09:45)
[2018-03-20] MEDS ORDERED: DO NOT ADM ANY ANTICOAGULANT DRUGS PRN (10:08)
[2018-03-20] MEDS ORDERED: MIDAZOLAM HCL 2 MG/2 ML VIAL ONE (10:15)
--- NOTE | 2018-03-20 10:15 | HHI.PR ---
Subjective Remarks Follow up for right proximal humerus fracture, right shoulder dislocation. Patient was seen after surgery. She reports feeling unwell after surgery, due to anesthesia. Denies any chest pain, SOB, fever, chills. Objective Vitals Vital Signs Date Time Temp Pulse Resp B/P (MAP) Pulse Ox O2 Delivery O2 Flow Rate FiO2 03/20/18 07:30 97.8 86 18 147/65 (92) 98 03/20/18 04:00 98.2 90 18 168/74 (105) 96 03/20/18 00:00 98.0 95 18 147/88 (107) 95 03/19/18 20:00 97.9 89 19 167/74 (105) 98 03/19/18 17:10 165/78 (107) 03/19/18 16:13 81 18 184/78 (113) 98 03/19/18 13:06 97.4 94 17 167/109 (128) 98 I/O 03/19/18 03/19/18 03/19/18 03/20/18 03/20/18 03/20/18 07:00 15:00 23:00 07:00 15:00 23:00 Intake Total 575 ml 1000 ml Output Total 100 ml Balance 575 ml 900 ml Intake Oral 575 ml IV Total 1000 ml Output Estimated Blood Loss 100 ml # Voids 2 Result Diagram: 03/20/18 0651 03/20/18 0651 Imaging Last Impressions Humerus X-Ray 03/20/18 0000 Signed Impressions: Service Date/Time: Tuesday, March 20, 2018 09:26 - CONCLUSION: Intraoperative spot images demonstrating proximal humerus fracture with internal fixation hardware in place. Bry Quan MD Upper Extremity CT 03/19/18 0000 Signed Impressions: Service Date/Time: Monday, March 19, 2018 15:50 - CONCLUSION: Anterior fracture dislocation of the right humerus. Louis Lowe MD FACRADDENDUM: 3- D reconstructions confirm comminuted fracture with anterior dislocation humeral head. Louis Lowe MD FACR Shoulder X-Ray 03/19/18 0000 Signed Impressions: Service Date/Time: Monday, March 19, 2018 13:39 - CONCLUSION: Fracture dislocation humeral head as above. Louis Lowe MD FACR Finger X-Ray 03/19/18 0000 Signed Impressions: Service Date/Time: Monday, March 19, 2018 20:23 - CONCLUSION: 1. Normal alignment. No acute fracture identified. Santos Herman MD Objective Remarks GENERAL: Alert, NAD. SKIN: Warm and dry. HEAD: Normocephalic. EYES: No scleral icterus. No injection or drainage. NECK: Supple, trachea midline. No JVD or lymphadenopathy. CARDIOVASCULAR: Regular rate and rhythm without murmurs, gallops, or rubs. RESPIRATORY: Breath sounds equal bilaterally. No accessory muscle use. GASTROINTESTINAL: Abdomen soft, non-tender, nondistended. MUSCULOSKELETAL: No cyanosis, or edema. BACK: Nontender without obvious deformity. No CVA tenderness. A/P Problem List: (1) Fracture of humeral head, right, closed ICD Code: S42.291A - Other displaced fracture of upper end of right humerus, initial encounter for closed fracture Status: Acute (2) Leucocytosis ICD Code: D72.829 - Elevated white blood cell count, unspecified (3) Hypertension ICD Code: I10 - Essential (primary) hypertension (4) Finger dislocation ICD Code: S63.259A - Unspecified dislocation of unspecified finger, initial encounter Status: Acute Assessment and Plan 82-year-old female with Fracture of humeral heads, right, closed Status post mechanical fall March 17, 2018 s/p Open treatment right shoulder dislocation, open reduction to fixation right proximal humerus Dislocation of left fifth digits Hand surgery evaluated, outpatient follow up recommended. Hypertension - Continue home meds Benazepril. Outpatient follow up. Patient with history of giant cell arthritis Currently on steroid, resume DVT prophylaxis: Bilateral SCDs Problem Qualifiers (1) Fracture of humeral head, right, closed: Qualified Codes: S42.291A - Other displaced fracture of upper end of right humerus, initial encounter for closed fracture (2) Finger dislocation: Qualified Codes: S63.259A - Unspecified dislocation of unspecified finger, initial encounter Randal Moe DO March 20, 2018 10:15 am
[2018-03-20] MEDS ORDERED: *ONDANSETRON 4 MG VIAL PERIprocedural Use ONLY ONE (10:16)
[2018-03-20] MEDS ORDERED: *PROMETHAZINE 25 MG/ML VIAL PERIprocedural use ONLY ONE (10:20)
[2018-03-20] MEDS ORDERED: NEOSTIGMINE 5 MG/5 ML SYRINGE IV PUSH ONE (11:48)
[2018-03-20] MEDS ORDERED: GLYCOPYRROLATE 1 MG/5 ML SYRINGE IV PUSH ONE (11:48)
[2018-03-20] MEDS ORDERED: ROCURONIUM INJ 50 MG/5 ML SYRINGE IV PUSH ONE (11:48)
[2018-03-20] MEDS ORDERED: PROPOFOL 200 MG/20 ML AMP IV ONE (11:48)
[2018-03-20] MEDS ORDERED: PHENYLEPH/NS 1000 MCG/10 ML SYR IV ONE (11:48)
[2018-03-20] MEDS ORDERED: ePHEDrine/NS 25 MG/5 ML SYRINGE IV ONE (11:48)
[2018-03-20] MEDS ORDERED: LIDOCAINE HCL 1% PF 5 ML SYRINGE OTHER ONE (11:48)
[2018-03-20] MEDS ORDERED: DEXAMETHASONE SOD PHOS 4 MG/ML VIAL IV ONE (11:48)
[2018-03-20] MEDS ORDERED: ONDANSETRON HCL 4 MG/2 ML VIAL IV ONE (11:48)
[2018-03-20] MEDS: ACETAMINOPHEN/HYDROcodone 325 MG/5 MG TAB PO PRN ×3 (13:32→21:34)
--- NOTE | 2018-03-20 14:19 | EKG ---
Date Performed: 03/19/2018 Time Performed: 22:13:12 PTAGE: 82 years EKG: Sinus rhythm WITH OCCASIONAL SUPRAVENTRICULAR PREMATURE COMPLEXES RIGHT BUNDLE BRANCH BLOCK When compared to prev ious tracing, premature atrial contractions Are now present. ABNORMAL ECG PREVIOUS TRACING : 12/11/2014 09.50 DOCTOR: Wilbert Garcia Interpretating Date/Time 03/20/2018 14:17:54
[2018-03-20] MEDS: ceFAZolin 2 GM PREMIX 50 ML IV SCH (17:34)
[2018-03-20] MEDS: GEMFIBROZIL 600 MG TAB PO SCH (17:34)
--- NOTE | 2018-03-20 17:56 | RADRPT ---
EXAM DATE/TIME: 03/20/2018 09:26 [facility] COMPARISON: No previous studies available for comparison. INDICATIONS : ORIF Right Humerus MEDICAL HISTORY : Hypertension. SURGICAL HISTORY : None. ENCOUNTER: Initial ACUITY: 1 day PAIN SCORE: Non-responsive. LOCATION: Right humerus FINDINGS: 9 intraoperative spot images of the humerus. Proximal humerus fracture with near-anatomic alignment. Proximal internal fixation plate and multiple transfixing screws are in place. CONCLUSION: Intraoperative spot images demonstrating proximal humerus fracture with internal fixation hardware in place. Bry Quan MD on March 20, 2018 at 17:53 Board Certified Radiologist. This report was verified electronically.
[2018-03-20] MEDS: cloNIDine HCL 0.1 MG TAB PO PRN (21:35)
[2018-03-21] MEDS: ENALAPRILAT 2.5 MG/2 ML VIAL IV PUSH PRN
[2018-03-21] MEDS: ACETAMINOPHEN/HYDROcodone 325 MG/5 MG TAB PO PRN ×2 (01:58→08:56)
[2018-03-21] MEDS: ceFAZolin 2 GM PREMIX 50 ML IV SCH ×2 (01:58→08:57)
[2018-03-21 04:51] VITALS: BP 130/84; PULSE 88; RESP 18; TEMP 97.7; O2SAT 94
[2018-03-21] MEDS: GEMFIBROZIL 600 MG TAB PO SCH (06:35)
--- NOTE | 2018-03-21 07:12 | HHI.FF ---
Face to Face Verification Diagnosis: (1) Fracture of humeral head, right, closed Occupational Therapy Right UE Weight Bearing: Non WB Right UE Range of Motion: No ROM Nursing Dressing Changes: Daily dressing change, 4x4s, Xeroform, Coverderm/Primapore I have seen patient Conchis Salinas on 03/21/18. My clinical findings support the need for the requested home health care services because: Ltd mobility - disease progression I certify that my clinical findings support that this patient is homebound because: Post-op weakness Sameer Cannon/Flooring Grader PA March 21, 2018 07:12
[2018-03-21 08:17] VITALS: BP 156/72; PULSE 89; RESP 18; TEMP 97.4; O2SAT 96
[2018-03-21] MEDS ORDERED: BENA20TA PO (08:50)
[2018-03-21] MEDS: predniSONE 5 MG TAB PO SCH (08:53)
[2018-03-21] MEDS: SODIUM CHLORIDE 0.9% FLUSH 10 ML FLUSH IV FLUSH SCH (08:57)
[2018-03-21] MEDS ORDERED: CHOLECALCIFEROL (VIT D3) 1000 UNIT TAB PO SCH (09:00)
[2018-03-21] MEDS ORDERED: COMMODE 3-IN-11 MIS (09:56)
--- NOTE | 2018-03-21 12:35 | HHI.DS ---
Discharge Summary Admission Date March 19, 2018 at 3:20 pm Discharge Date: March 21, 2018 Admitting Diagnosis right humeral head fracture with dislocation, fall (1) Fracture of humeral head, right, closed ICD Code: S42.291A - Other displaced fracture of upper end of right humerus, initial encounter for closed fracture Status: Acute (2) Leucocytosis ICD Code: D72.829 - Elevated white blood cell count, unspecified (3) Hypertension ICD Code: I10 - Essential (primary) hypertension (4) Finger dislocation ICD Code: S63.259A - Unspecified dislocation of unspecified finger, initial encounter Status: Acute Procedures Open treatment right shoulder dislocation, open reduction to fixation right proximal humerus Brief History - From Admission 82-year-old female for medical history of hypertension, osteoarthritis who presented to the ED via private vehicle for evaluation of right upper extremity/ shoulder pain as well as left fifth finger pain status post mechanical fall, which have been last night around 8 PM in [place]. Patient states, she tripped over, in the parking lot and landed on the right shoulder, however in the process injuring her left fifth finger. She denied any head trauma or loss of consciousness. She suffered multiple laceration to bilateral lower extremities. Immediately reported over 10 in intensity severe pain. Patient was initially taken to a local emergency department however decided to drive herself in [place] for evaluation by orthopedic surgery. Currently she denies any chest pain, shortness of breath. She has no GI bleed. CBC/BMP: 03/20/18 0651 03/20/18 0651 Significant Findings Laboratory Tests Test 03/19/18 14:00 03/20/18 06:51 White Blood Count 14.8 TH/MM3 (4.0-11.0) 12.3 TH/MM3 (4.0-11.0) Neutrophils (%) (Auto) 81.8 % (16.0-70.0) 78.8 % (16.0-70.0) Lymphocytes (%) (Auto) 8.3 % (9.0-44.0) Monocytes (%) (Auto) 9.0 % (0.0-8.0) 10.1 % (0.0-8.0) Neutrophils # (Auto) 12.1 TH/MM3 (1.8-7.7) 9.7 TH/MM3 (1.8-7.7) Monocytes # (Auto) 1.3 TH/MM3 (0-0.9) 1.2 TH/MM3 (0-0.9) Random Glucose 115 MG/DL (74-106) 118 MG/DL (74-106) Estimat Glomerular Filtration Rate 64 ML/MIN (>89) 75 ML/MIN (>89) Red Blood Count 3.90 MIL/MM3 (4.00-5.30) Hematocrit 34.9 % (35.0-46.0) Total Protein 6.3 GM/DL (6.4-8.2) Albumin 3.2 GM/DL (3.4-5.0) Imaging Last Impressions Humerus X-Ray 03/20/18 0000 Signed Impressions: Service Date/Time: Tuesday, March 20, 2018 09:26 - CONCLUSION: Intraoperative spot images demonstrating proximal humerus fracture with internal fixation hardware in place. Bry Quan MD Upper Extremity CT 03/19/18 0000 Signed Impressions: Service Date/Time: Monday, March 19, 2018 15:50 - CONCLUSION: Anterior fracture dislocation of the right humerus. Louis Lowe MD FACRADDENDUM: 3- D reconstructions confirm comminuted fracture with anterior dislocation humeral head. Louis Lowe MD FACR Shoulder X-Ray 03/19/18 0000 Signed Impressions: Service Date/Time: Monday, March 19, 2018 13:39 - CONCLUSION: Fracture dislocation humeral head as above. Louis Lowe MD FACR Finger X-Ray 03/19/18 0000 Signed Impressions: Service Date/Time: Monday, March 19, 2018 20:23 - CONCLUSION: 1. Normal alignment. No acute fracture identified. Santos Herman MD PE at Discharge GENERAL: Alert, NAD. SKIN: Warm and dry. HEAD: Normocephalic. EYES: No scleral icterus. No injection or drainage. NECK: Supple, trachea midline. No JVD or lymphadenopathy. CARDIOVASCULAR: Regular rate and rhythm without murmurs, gallops, or rubs. RESPIRATORY: Breath sounds equal bilaterally. No accessory muscle use. GASTROINTESTINAL: Abdomen soft, non-tender, nondistended. MUSCULOSKELETAL: No cyanosis, or edema. BACK: Nontender without obvious deformity. No CVA tenderness. Pt update on day of discharge Patient is currently doing well. Orthopedic surgery, hand surgery cleared for discharged. Daughter is at bedside. Hospital Course Ms. Salinas is a pleasant 82 year old female who was admitted after she fell and sustained a right-sided humeral head fracture. Patient also had a left fifth digit dislocation. Hand surgery was consulted and recommended to continue the splint and outpatient follow-up. Orthopedic surgery was consulted and patient underwent ORIF right proximal humerus on 03/20/2018. Postsurgery patient continued to do well. We continued her home medications including prednisone 5 mg and blood pressure medications. Patient was subsequently cleared by orthopedic surgery and hand surgery. Patient was discharged on 03/21/2018 with home health. Pt Condition on Discharge: Good Discharge Disposition: Disch w/ Home Health Serv Discharge Time: <= 30 minutes Discharge Instructions DIET: Follow Instructions for: Diabetic Diet Activities you can perform: Regular-No Restrictions Follow up Referrals: Hand Surgery - 3-5 Days with Liliane Louise MD Orthopedics - 2 Weeks [facility] with Benton Ornelas MD PCP Follow-up - 1 Week SNF/[facility]/ with [facility] New Medications: Calcium Carbonate-Vitamin D (Calcium 600+D 200) 600-200 Mg-Unit Tab 1 TAB PO BID for Nutritional Supplement, #60 TAB 0 Refills Cholecalciferol (Vitamin D3) 2,000 Unit Cap 2000 UNITS PO DAILY for Nutritional Supplement, #60 CAP 0 Refills Commode 3-in-1 (Commode 3-in-1) 1 Mis Mis EA .XX DIRECTED, #1 0 Refills Ergocalciferol (Ergocalciferol) 50,000 Unit Cap 92233 UNITS PO Q7D for Nutritional Supplement, #8 CAP Hydrocodone-Acetaminophen (Hydrocodone-Acetaminophen) 10-325 mg Tab 1 TAB PO Q4H PRN for PAIN, #60 TAB 0 Refills Continued Medications: Benazepril (Benazepril) 20 Mg Tab 20 MG PO HS for Blood Pressure Management, #30 TAB 0 Refills Estradiol (Estradiol) 0.05 Mg Dis 1 PATCH TD Q7D, DIS Estradiol (Estradiol) 0.5 Mg Tab 0.5 MG PO WEEKLY for Estrogen Supplements, #30 TAB 0 Refills Gemfibrozil (Lopid) 600 Mg Tab 600 MG PO BIDAC, #60 TAB 0 Refills Take 30 minutes prior to breakfast and dinner Prednisone (Prednisone) 5 Mg Tab 5 MG PO DAILY, TAB 0 Refills Discontinued Medications: Gemfibrozil (Lopid) 600 Mg Tab 600 MG PO DAILY, TAB Randal Moe DO March 21, 2018 12:35 pm
== END 2018-03-21 11:49 | disposition home or self-care (01) | DRG 494 ==
LOC: NEPC 13:00 → NEDA 15:20 → N06A 17:22
PROVIDERS: ADMIT Hospitalist; ATTEND Hospitalist
PROC: 0PSC04Z Reposition Right Humeral Head with Internal Fixation Device, Open Approach (ICD-10-PCS; principal; 2018-03-20 08:17)
DX: S42.291A Other displaced fracture of upper end of right humerus, initial encounter for closed fracture (principal); M31.6 Other giant cell arteritis; S63.287A Dislocation of proximal interphalangeal joint of left little finger, initial encounter; Z79.52 Long term (current) use of systemic steroids; I10 Essential (primary) hypertension; W01.0XXA Fall on same level from slipping, tripping and stumbling without subsequent striking against object, initial encounter; Y92.481 Parking lot as the place of occurrence of the external cause
CPT/HCPCS: 73030; 73060; 73140; 73200; 76000; 76937; 80053; 83735; 85025; 85610; 85730; 93005; 96374; 96375; C1713; J0131; J0690; J1100; J1580; J1720; J2250; J2270; J2370; J2405; J2550; J2710; J3010; J3370; J7512